=== PATIENT | female | born 1990 | race Asian ===

== ENCOUNTER 2019-11-03 21:17 | Emergency (ER) | payer MEDICAID, OTHER ==
[~2019-11-03] VITALS: Ht 177.8 cm; Wt 73.9 kg
--- NOTE | 2019-11-03 21:25 | NUR ---
NIL X1
[2019-11-03 21:31] VITALS: BP 128/87
[2019-11-03] MEDS ORDERED: MORPHINE SULFATE 4 MG/ML, 1ML ONE ×2 (22:09→22:50)
[2019-11-03] MEDS ORDERED: ONDANSETRON 2MG/ML, 2ML ONE (22:09)
[2019-11-03] MEDS: MORPHINE SULFATE 4 MG/ML, 1ML IVPush PRN ×2 (22:13→22:53)
[2019-11-03 22:16] LABS: BASOPHILS # (AUTO) 0.05 x10^3/uL (0-0.1); BASOPHILS % (AUTO) 1 % (0-1); EOSINOPHILS # (AUTO) 0.15 x10^3/uL (0-0.4); EOSINOPHILS % (AUTO) 1 % (1-7); LYMPHOCYTES # (AUTO) 2.67 x10^3/uL (1-3.4); LYMPHOCYTES % (AUTO) 25 % (22-44); MD NO; MEAN CORPUSCULAR HEMOGLOBIN 29.3 pg (27.0-34.8); MEAN CORPUSCULAR HGB CONC 32.7 g/dL (32.4-35.8); MEAN CORPUSCULAR VOLUME 89.6 fL (80-100); MEAN PLATELET VOLUME 7.9 fL (7.4-10.4); MONOCYTES # (AUTO) 0.59 x10^3/uL (0.2-0.8); MONOCYTES % (AUTO) 6 % (2-9); NEUTROPHILS # (AUTO) 7.26 x10^3/uL (1.8-6.8); NEUTROPHILS % (AUTO) 68 % (42-75); PLATELET COUNT 313 x10^3/uL (130-400); RED BLOOD COUNT 4.88 x10^6/uL (3.82-5.3); RED CELL DISTRIBUTION WIDTH 12.3 % (9.6-15.2)
[2019-11-03 22:19] LABS: MICROSCOPIC INDICATED
--- NOTE | 2019-11-03 22:20 | NUR ---
PT UP TO RESTROOM FOR URINE SAMPLE COLLECTION WITH STRONG INDEPENDENT GAIT. IV STARTED, LABS DRAWN AND SENT. PT PLACED ON PELVIC BED AND PROVIDED WITH WARM BLANKETS. MEDICATED PER JUN. CALL LIGHT IN REACH.
[2019-11-03 22:25] LABS: ALBUMIN 3.6 g/dL (3.4-5.0); ANION GAP 5 mmol/L (5-15); CALCIUM 8.3 mg/dL (8.5-10.1); CHLORIDE 111 mmol/L (98-107); CREATININE 0.88 mg/dL (0.55-1.02)
[2019-11-03] MEDS ORDERED: SODIUM CHLORIDE FLUSH 10ML SYR IVF ONE (22:30)
[2019-11-03] MEDS ORDERED: ONDANSETRON 2MG/ML, 2ML IVPush ONE (22:30)
[2019-11-03] MEDS ORDERED: CEFTRIAXONE PMX 1GM/50ML 50 ML ONE (22:44)
[2019-11-03] MEDS ORDERED: CEFTRIAXONE PMX 1GM/50ML 50 ML IV ONE (23:00)
== END 2019-11-03 23:25 | disposition home or self-care (01) ==
LOC: ED 22:29
DX: N30.01 Acute cystitis with hematuria (principal)
CPT/HCPCS: 36415; 80048; 81001; 82040; 84703; 85025; 87077; 87086; 96365; 96375; 96376; 99284; J0696; J2270; J2405; 87186

== ENCOUNTER 2020-02-15 16:16 | Emergency (ER) | payer OTHER ==
[~2020-02-15] VITALS: Ht 147.3 cm; Wt 75.6 kg
[2020-02-15 16:36] VITALS: BP 122/81
--- NOTE | 2020-02-15 16:59 | NUR ---
URINE COLLECTED/SENT TO LAB.
[2020-02-15 17:34] LABS: MICROSCOPIC AUTO
[2020-02-15 17:50] LABS: BASOPHILS % (AUTO) 0 % (0-1); EOSINOPHILS % (AUTO) 2 % (1-7); LYMPHOCYTES % (AUTO) 24 % (22-44); MEAN CORPUSCULAR HEMOGLOBIN 29.7 pg (27.0-34.8); MEAN CORPUSCULAR HGB CONC 33.7 g/dL (32.4-35.8); MONOCYTES % (AUTO) 6 % (2-9); NEUTROPHILS % (AUTO) 68 % (42-75); PLATELET COUNT 280 x10^3/uL (130-400); RED BLOOD COUNT 4.84 x10^6/uL (3.82-5.3); RED CELL DISTRIBUTION WIDTH 12.5 % (9.6-15.2)
[2020-02-15 17:52] LABS: MD NO
[2020-02-15] MEDS ORDERED: KETOROLAC 30 MG/1 ML ONE (17:55)
[2020-02-15] MEDS ORDERED: KETOROLAC 30 MG/1 ML IM ONE (18:00)
[2020-02-15 18:01] LABS: ALANINE AMINOTRANSFERASE 21 U/L (12-78); ALBUMIN 3.6 g/dL (3.4-5.0); ANION GAP 8 mmol/L (5-15); CHLORIDE 110 mmol/L (98-107); CREATININE 0.68 mg/dL (0.55-1.02)
[2020-02-15 18:06] LABS: ALKALINE PHOSPHATASE 55 U/L (45-117); BILIRUBIN,TOTAL 0.5 mg/dL (0.2-1.0); TOTAL PROTEIN 7.6 g/dL (6.4-8.2)
[2020-02-15] MEDS ORDERED: NITROFURANTOIN (MACROBID) 100 MG CAPSULE PO ONE (18:30)
== END 2020-02-15 18:50 | disposition home or self-care (01) ==
LOC: ED 18:00
DX: N30.01 Acute cystitis with hematuria (principal); R30.0 Dysuria; R11.10 Vomiting, unspecified; F17.200 Nicotine dependence, unspecified, uncomplicated
CPT/HCPCS: 36415; 80053; 81001; 84703; 85025; 87077; 87086; 96372; 99283; J1885; 87186